=== PATIENT | female | born 1995 | race Two or more races ===

== ENCOUNTER 2024-05-07 18:38 | Emergency (ER) | payer OTHER ==
[~2024-05-07] VITALS: Ht 157.5 cm; Wt 55.8 kg
[2024-05-07] MEDS ORDERED: KETOROLAC TROMETHAMINE 30 MG VIAL IM STA (20:44)
== END 2024-05-07 21:07 | disposition home or self-care (01) ==
LOC: ER 18:41
DX: S00.33XA Contusion of nose, initial encounter (principal); X58.XXXA Exposure to other specified factors, initial encounter; Y93.89 Activity, other specified; Y92.89 Other specified places as the place of occurrence of the external cause; Y99.9 Unspecified external cause status; Z91.041 Radiographic dye allergy status